=== PATIENT | male | born 1990 | race Caucasian/White ===

== ENCOUNTER 2020-10-13 12:14 | Emergency (ER) | payer BC, SELFPAY ==
--- NOTE | 2020-10-13 12:26 | XR_ITS ---
PROCEDURE: XR ELBOW RT MIN 3V CLINICAL INDICATION: injury Pain COMPARISON: No exams were available for comparison FINDINGS: No fracture or dislocation. No lytic or blastic change. There is normal mineralization. The joint spaces are well-preserved. No significant degenerative/arthritic changes. No erosive changes evident. Other findings:None. IMPRESSION: No acute findings. Dictated by: Mark James MD 10/13/2020 14:18 Mark James MD in [place] 10/13/2020 14:18
[2020-10-13 12:28] VITALS: BP 146/98; PULSE 64; RESP 14; TEMP 36.6; O2SAT 99; BMI 31.2
--- NOTE | 2020-10-13 12:46 | HMH.EDUTC ---
[facility] [place] Disposition Clinical Impression: Elbow sprain Qualifiers: Encounter type: initial encounter Laterality: right Qualified Code(s): S53.401A - Unspecified sprain of right elbow, initial encounter Disposition: Home, Self-Care Condition on Discharge: Good Instructions: How To Perform RICE (Rest, Ice, Compress, Elevate), DI for Elbow Pain Additional Instructions: *RICE, Rest the extremity, Ice 15-20 minutes 3-4 times daily, Compress- wear the anish wrap as discussed as much as possible to help reduce swelling and pain, Elevate the extremity when at rest *Anish wrap is for support and help control swelling, use it except in the shower. Be sure that is not to tight but not to loose either *Elevate when resting *Ibuprofen every 6-8 hours as needed for pain an inflammation. If need something more can take Tylenol in between doses of Ibuprofen to help Immediately follow up with your family doctor for new or worsening of symptoms, or no noticeable improvement over the next 3-5 days Referrals: PCP,No [Primary Care Provider] - As needed Felipe Perez MD [Staff Physician] - (Office will call with Appointment) Time of Disposition: 13:28 Medical Decision Making - Cortes Inquiry Pt receiving controlled substance: No Cortes was queried for this patient: No Vital Signs: 10/13/20 12:28 10/13/20 13:34 Temperature 98 F 98 F Temperature Source Oral Pulse Rate 63 Pulse Rate [Right] 64 Respiratory Rate 14 16 Blood Pressure 139/85 Blood Pressure [Right Arm] 146/98 H Blood Pressure Mean [Right Arm] 114 Blood Pressure Source [Right Arm] Automatic Cuff Blood Pressure Position [Right Arm] Sitting 02 Sat by Pulse Oximetry 99 - Radiology Data #1 Image(s): Elbow Image Reviewed: Yes I reviewed the patient's radiology image Preliminary Findings: No Fracture Seen - Physician Consults Physician Consulted: Chris Time: 13:31 Reason -: Orthopedic Eval/Care Comment/Response: Spoke with Dr Perez and he viewed xray agreed no acute fracture but will have him follow up in the office Advised office will call with appointment [facility] [place] HPI - General Stated complaint: Rt arm pain, unknown origin Time Seen by Provider: 10/13/20 12:46 Mode of Arrival: Ambulatory Source of Information: Patient Limitations: No Limitations Description of Symptoms (Recalled from Triage Doc. by RN): pt was weight training and injured his right elbow. pt states his elbow feels very weak and sore. theres only pain when he tries to pick something up and he says it feels like its tearing. HEENT Symptoms (Recalled from RN notes): No Resp Symptoms (Recalled from RN notes): No Skin Symptoms (Recalled from RN notes): No MS Symptoms (Recalled from RN notes): Yes (R elbow pain) Functional Status (Recalled from RN notes): na - History of Present Illness Provider Complaint: Patient states that about a month ago he was lifting weights and felt something pull in his elbow area States that ever since he has been having pain in his right elbow when he tries to lift something or hold his phone States that when he lifts something he feels a tearing like pain Denies any other injury - Related Data Allergies Allergy/AdvReac Type Severity Reaction Status Date / Time No Known Allergies Allergy Verified 10/13/20 12:32 - Worker's Comp Is this a Worker's Comp case?: No [facility] History - Hepatitis A Screen Drug use history?: No High risk sexual behaviors?: No History of sexually transmitted infection?: No Currently employed?: No Childcare worker?: No Do you have indoor plumbing?: Yes Do you have electricity?: Yes Attestation statement:: This patient has been screened for Hepatitis A risk factors. I have reviewed the patient's past medical history: Yes - Social History Smoking Status: Never smoker Alcohol Intake: never Occupational Status: employed ROS Obtained: Yes All systems reviewed & no additional complaints, Yes Systems reviewed as appropriate & no addition
[2020-10-13 13:34] VITALS: BP 139/85; PULSE 63; RESP 16; TEMP 36.6
== END 2020-10-13 13:34 | disposition home or self-care (01) ==
PROVIDERS: Emergency Provider Nurse Practitioner
DX: S53.401A Unspecified sprain of right elbow, initial encounter (principal); X50.0XXA Overexertion from strenuous movement or load, initial encounter
CPT/HCPCS: 73080; 99202; G0463

== ENCOUNTER 2024-08-17 09:35 | Emergency (ER) | payer BC, SELFPAY ==
[2024-08-17 10:08] VITALS: BP 172/119; PULSE 119; RESP 20; TEMP 37.7; O2SAT 93; BMI 34.0
[2024-08-17] MEDS: ACETAMINOPHEN 325MG TAB 650 MG PO (10:17)
[2024-08-17 10:18] LABS: UTC Influenza A Antigen Negative (Negative)
[2024-08-17 10:19] LABS: UTC Influenza B Antigen Negative (Negative)
--- NOTE | 2024-08-17 11:09 | EXP.UTC ---
Discharge Plan Disposition Patient Disposition: Home, Self-Care Condition: Good Prescriptions Prescriptions: New doxycycline hyclate 100 mg capsule 100 mg PO BID 10 Days Qty: 20 0RF benzonatate 100 mg capsule 100 mg PO TID PRN (Reason: cough) Qty: 30 0RF Referrals Follow up/Referrals: Provider,Referral, MD [Primary Care Provider] - See instructions Activity Restrictions/Add. Instructions Additional Instructions/Restrictions: Take medication as prescribed. Call back this evening at [phone] for lab results. Follow up with PCP if no better withing 48-72 hours. If you become short of air, return to the ER. Take Tylenol/Ibuprofen as needed for fever/pain. Avoid OTC cold medications unless states that for use for people with high blood pressure. Monitor blood pressure three times a week and document. Make an appointment with PCP and take BP log with you at that time. Clinical Impressions Clinical Impression: Acute lower respiratory infection High blood pressure Qualifiers: Hypertension type: unspecified Qualified Code(s): I10 - Essential (primary) hypertension Stand Alone Forms Stand Alone Forms: Work/School Release Instructions Patient Instructions: Acute Bronchitis, DI for High Blood Pressure, Recommendations to Help Prevent High Blood Pressure Print Language Print Language: Azeri Discharge ED Provider: Perla Mckeon [facility] [place] General Stated complaint: fever 102, chills Mode of Arrival: Ambulatory Source of Information: Patient Time Seen by Provider: 08/17/24 11:08 Description of Symptoms (Recalled from Triage Doc. by RN): FEVER OF 102 AT HOME, CHILLS, CONGESTION HEENT Symptoms (Recalled from RN notes): No Resp Symptoms (Recalled from RN notes): Yes Skin Symptoms (Recalled from RN notes): No MS Symptoms (Recalled from RN notes): No Functional Status (Recalled from RN notes): WNL History of Present Illness Provider Complaint: Pt reports that he has had a fever since with temps being as high as 102. He states that he has had a cough and is taking OTC cold medications. He states that he has had body aches and chils. Related Data Previous Rx's ?Medication ?Instructions ?Recorded benzonatate 100 mg capsule 100 mg PO TID PRN cough #30 caps 08/17/24 doxycycline hyclate 100 mg capsule 100 mg PO BID 10 days #20 caps 08/17/24 Allergies Allergy/AdvReac Type Severity Reaction Status Date / Time No Known Allergies Allergy Verified 10/27/20 09:18 Worker's Comp Is this a Worker's Comp case?: No [facility] Disclaimer: The information contained in this section may have been updated after the patient was seen, as this information can be updated by other users. Social History Smoking Status: Never smoker alcohol intake: never current occupational status: employed Travel in the last 8 weeks: None Have you lived/traveled outside [place] in past 30 days?: No Contact w/someone who lives/traveled outside US past 30 days?: No Exposure to someone with infectious disease in past 14 days?: No Do you have a fever (greater than 100.4 F or 38 C)?: Yes Have you tested positive for COVID-19: No Exposed to someone with COVID-19 in past 14 days?: No Do you have a sore throat?: No Do you have a cough?: No Do you have any weakness?: No Do you have any diarrhea?: No Are you experiencing any unusual bleeding?: No Do you have any muscle aches/pain?: No Do you have any abdominal pain?: No Are you experiencing loss of taste or smell?: No ROS Obtained: Yes All systems reviewed & no additional complaints except as documented Constitutional Constitutional: Reports system reviewed and no additional complaints, except as documented, Reports body ache, Reports chills and Reports fever(s) Eyes Eyes: Reports system reviewed and no additional complaints, except as documented ENT Ears, Nose, Mouth, and Throat: Reports system reviewed and no additional complaints, except as documented Cardiovascular Cardiovascular: Reports system reviewed and no additional complaints, except as documented Respiratory Respiratory: Reports system reviewed and no additional complaints, except as documented and Reports cough Gastrointestinal Gastrointestingal: Reports system reviewed and no additional complaints, except as documented Genitourinary Male Genitourinary: Reports system reviewed and no additional complaints, except as documented Musculoskeletal Musculoskeletal: Reports system reviewed and no additional complaints, except as documented Integumentary/Breasts Skin/Breast: Reports system reviewed and no additional complaints, except as documented Neurologic Neurologic: Reports system reviewed and no additional complaints, except as documented Endocrine Endocrine: Reports system reviewed and no additional complaints, except as documented Hematologic/Lymphatic Henatologic/Lymphatic: Reports system reviewed and no additional complaints, except as documented Allergic/Immunologic Allergic/Immunologic: Reports system reviewed and no additional complaints, except as documented Physical Exam General General appearance: alert Comment: ill appearing. Sweating profusely Head Head exam: atraumatic and normocephalic Eye Eye exam: Present normal appearance ENT ENT exam: Present normal exam, normal oropharynx and mucous membranes moist Neck Neck exam: Present normal inspection; Absent lymphadenopathy Chest Chest inspection: Present normal inspection and symmetric chest wall rise Respiratory Respiratory exam: Present other (course sounds throughout) Cardiovascular Cardiovascular exam: Present tachycardia Abdominal Exam Abdominal exam: Present soft and normal bowel sounds Extremities Exam Extremities exam: Present normal inspection Back Exam Back exam: Present normal inspection Neurological Exam Neurological exam: Present alert and oriented X3 Psychiatric Psychiatric exam: Present normal affect and normal mood Skin Skin exam: Present warm, dry and intact Lymphatic Lymphatic Findings: no adenopathy Medical Decision Making Medical Records Screening: Per USPSTF and CDC recommendations, given the prevalence of disease in our region, it is our hospital?s policy to screen for HIV and viral Hepatitis for all patients aged 18 and over and those with ongoing risk factors. Cortes Inquiry Pt receiving controlled substance: No Cortes was queried for this patient: No Vital Signs: 08/17/24 10:08 Temperature 99.8 F H Temperature Source Oral Pulse Rate [Left Radial] 119 H Respiratory Rate 20 Blood Pressure [Left Arm] 172/119 H Blood Pressure Mean [Left Arm] 136 02 Sat by Pulse Oximetry 93 L Lab Data Lab results reviewed: Yes I reviewed the patient's lab results. Lab Results 08/17/24 10:17: Influenza Type A Ag Negative, Influenza Type B Ag Negative Orders (Tests/Meds): ED MEDICATIONS Discontinued Medications Generic Name Dose Route Start Last Admin Trade Name Cj PRN Reason Stop Dose Admin Acetaminophen 650 mg 08/17/24 10:15 08/17/24 10:17 Acetaminophen 325mg Tab PO 08/17/24 10:16 650 mg ONCE ONE Administration
[2024-08-17 11:27] VITALS: BP 149/103; PULSE 111; O2SAT 95
[2024-08-17 11:30] VITALS: BP 149/103; PULSE 111; RESP 18; TEMP 37.7
[2024-08-17 11:39] LABS: Coronavirus 19, PCR Not Detected (NotDetected); Influenza A, PCR Not Detected (NotDetected); Influenza B, PCR Not Detected (NotDetected)
== END 2024-08-17 11:36 | disposition home or self-care (01) ==
PROVIDERS: Emergency Provider Nurse Practitioner Family
DX: J22 Unspecified acute lower respiratory infection (principal); I10 Essential (primary) hypertension
CPT/HCPCS: 87636; 87804; 99213; G0381

== ENCOUNTER 2024-12-27 02:28 | Emergency (ER) | payer BC, SELFPAY ==
[2024-12-27] VITALS (7 sets, daily range): BP systolic 113–158; BP diastolic 66–101; PULSE 71–107; RESP 14–18; TEMP 37.2–37.3; O2SAT 90–98; BMI 29.8
--- NOTE | 2024-12-27 02:34 | ECG_ITS ---
APPROVED REPORT Exam: Resting ECG HR:106 bpm ECG Measurements Heart Rate 106 AXES AK 139 P 29 QRSd 98 QRS 39 QT 358 T 20 QTc 420 Conclusion SINUS TACHYCARDIA ABNORMAL RHYTHM ECG Electronically signed by : RAQUEL LEMUS, 12/27/2024 03:51:26
--- NOTE | 2024-12-27 02:43 | XR_ITS ---
PROCEDURE INFORMATION: Exam: XR Chest Exam date and time: 12/27/2024 2:57 AM Age: 34 years old Clinical indication: Tachypnea; Additional info: Tachy, took delta 9 gummies TECHNIQUE: Imaging protocol: Radiologic exam of the chest. Views: 1 view. COMPARISON: No relevant prior studies available. FINDINGS: Lungs: Unremarkable. No consolidation. Pleural spaces: Unremarkable. No pleural effusion. No pneumothorax. Heart/Mediastinum: Unremarkable. No cardiomegaly. Bones/joints: Unremarkable. IMPRESSION: No acute findings.
[2024-12-27] MEDS: LACTATED RINGERS 1000ML 1,000 ML 999 ML IV ×2 (02:47→03:53)
[2024-12-27] MEDS: ONDANSETRON 4MG/2ML VIAL 4 MG IV (02:47)
--- OUTSIDE RECORDS SUMMARY | 2024-12-27 02:57 | XMS_ITS | Clinical Summary ---
Author Organization [facility] Address [address] [place] [id number] Phone [email or web address] Care Team Providers Care Survey Crew Chief Name Role Phone Provider, No Primary Care Provider Unavailabl e Allergies No known active allergies Medications Naproxen Sodium (Aleve) 220 MG capsule Take by mouth. Active Active Problems Problem Noted Date Diagnosed Date Mild sprain of right ankle 04/15/2019 Routine adult health maintenance 11/14/2016 Essential hypertension 10/17/2016 Gastroesophageal reflux disease without esophagi tis 10/17/2016 Need for Tdap vaccination 10/17/2016 Obesity (BMI 30-39.9) 10/17/2016 Overview (04/15/2019): Last Assessment & Plan: Obesity is newly identified. Discussed the patient's BMI. The BMI is above average; BMI management plan is completed. General weight loss/lifestyle modification strategies discussed (elicit support from others; identify saboteurs; non-food rewards, etc). Oropharyngeal dysphagia 10/17/2016 Immunizations Immunization Administration Dates Next Due Tdap (ADACEL BOOSTRIX) (CVX-[id number]) 10/17/2016 Social History Tobacco Use Types Packs/Day Years Used Date Smoking Tobacco: Never Smokeless Tobacco: Never Tobacco Cessation:Counseling Given: Not Answered Intimate Partner Violence Answer Date R ecorded Insults You Not on file 11/02/2020 Threatens You Not on file 11/02/2020 Screams at You Not on file 11/02/2020 Physically Hurt Not on file 11/02/2020 Intimate Partner Violence Score Not on file 11/02/2020 Depression Answer Date Recorded PHQ Total Score 0 09/20/2023 Stress Answer Date Recorded Stress in your Life Not on file 05/26/2024 Dealing with Stress 3 05/26/2024 Sex and Gender Information Value Date Recorded Sex Assigned at Not on file Legal Sex Male 8:29 AM CDT Gender Identity Not on file Sexual Orientation Not on file Last Filed Vital Signs Vital Sign Reading Time Taken Comments Blood Pressure 118/80 11/19/2024 2:43 PM EDT Pulse 82 11/19/2024 2:43 PM EDT Temperature 36.7 C (98.1 F) 11/19/2024 2:43 PM EDT Respiratory Rate 14 11/19/2024 2:43 PM EDT Oxygen Saturation 96% 10/03/2023 12:26 PM EDT Inhaled Oxygen Concentration - - Weight 113 kg (250 lb 3.2 oz) 11/19/2024 2:43 PM EDT Height 182.9 cm (6') 11/19/2024 2:43 PM EDT Body Mass Index 33.93 11/19/2024 2:43 PM EDT Plan of Treatment Health Maintenance Due Date Last Done Comments Dental Cleaning/Exam 1992 HIV Screening 1992 Hepatitis C Screening 1992 Annual Preventive Exam 2010 Hep B Infection Screening - Triple Screen 2010 Hepatitis B Immunization (1 of 3 - 19+ 3-dose series) 12/10/2011 Covid-19 Immunization (1 - 2 024-25 season) 2024 Influenza Immunization (Seas on Ended) 2025 Tetanus Diphtheria and Pertu ssis Immunization (2 - Td or Tdap) 10/17/2026 10/17/2016 HIB Immunization Aged Out No longer e ligible based on patient's age to complete this topic HPV Immunization Aged Out No longer e ligible based on patient's age to complete this topic Hepatitis A Immunization Aged Out No longer eligible based on patient's age to complete this topic Pneumococcal: Ped (0 to 5 Yr s) and At-Risk Member (6 to 64 Yrs) Aged Out No longer e ligible based on patient's age to complete this topic Polio Immunization Aged Out No longer eligible based on patient's age to complete this topic Varicella Immunization Aged Out No lo nger eligible based on patient's age to complete this topic Care Teams Survey Crew Chief Relationship Specialty Start Date End Date Provider, BLANCA Solis [id number] PCP - General Director Education 04/11/21
[2024-12-27 03:09] LABS: Alanine Aminotransferase 34 U/L (12-78); Albumin Level 4.5 g/dl (3.5-5.0); Albumin/Globulin Ratio 1.5 (1.1-1.8); Alkaline Phosphatase 75 U/L (38-126); Anion Gap 10.8 mEq/L (5-15); Aspartate Amino Transferase 36 U/L (17-59); Bilirubin,Total 0.8 mg/dl (0.2-1.3); Blood Urea Nitrogen 32 mg/dl (9-20); Calcium 8.5 mg/dl (8.4-10.2); Carbon Dioxide 25 mmol/L (22.0-30.0); Chloride 105 mmol/L (98-107); Creatinine Clearance Estimated 150 mL/min (50-200); Estimated Glomerular Filt Rate 87 ml/min (>60); GFR (African American) 105 ML/MIN (>60); Globulin 3.1 g/dL (1.3-3.2); Glucose 140 mg/dl (74-100); Potassium 3.8 mmoL/L (3.5-5.1); Sodium 137 mmol/L (136-145); Total Protein,Serum 7.6 g/dl (6.3-8.2)
[2024-12-27 03:13] LABS: D-Dimer 0.52 ug/mL (0.0-0.5)
[2024-12-27 03:14] LABS: Basophils # 0.1 K/mm3 (0-0.2); Basophils % 1.3 % (0.1-2.0); Eosinophils # 0.4 Kmm3 (0.0-0.4); Eosinophils % 5.3 % (0.1-12.0); Hematocrit 43.7 % (42.0-52.0); Hemoglobin 14.7 g/dL (14.1-18.0); Immature Granulocytes # 0.04 10^3uL; Immature Granulocytes % 0.6 %; Lymphocytes # 2.8 K/mm3 (0.7-4.5); Lymphocytes % 40.1 % (10-50); Mean Corpuscular HGB Conc 33.6 g/dL (31.8-35.4); Mean Corpuscular Hemoglobin 29.9 pg (27.0-31.2); Mean Platelet Volume 10.8 fl (7.4-10.4); Monocytes # 0.8 K/mm3 (0.1-1.0); Monocytes % 10.7 % (1.7-9.3); Neutrophils # 2.9 K/mm3 (1.8-7.8); Nucleated Red Blood Cells # 0 10^3/uL; Nucleated Red Blood Cells % 0 %; Platelet Count 235 K/mm3 (142-424); Red Blood Count 4.91 M/mm3 (4.60-6.20); Red Cell Distribution Width 12.3 % (11.5-17.5); Red Cell Distribution Width-SD 40.2 fL
--- NOTE | 2024-12-27 03:24 | ED_ITS ---
Discharge Plan Disposition Patient Disposition: Home, Self-Care Condition: Good Prescriptions Prescriptions: No Action doxycycline hyclate 100 mg capsule 100 mg PO BID 10 Days Qty: 20 0RF benzonatate 100 mg capsule 100 mg PO TID PRN (Reason: cough) Qty: 30 0RF Referrals Follow up/Referrals: Provider,Referral, [Primary Care Provider, Medical] - See instructions Activity Restrictions/Add. Instructions Additional Instructions/Restrictions: You were evaluated in the ER and are appropriate for discharge at this time. Avoid delta 9 and other illicit drugs in the future to avoid side effects like those that brought you to the ER tonight. Make an appointment with your primary care doctor for reevaluation. Return to the ER with any new, worsening, or otherwise concerning symptoms. Clinical Impressions Clinical Impression: Substance use Print Language Print Language: Maltese Discharge ED Provider: Sedrick Kohler Adult HPI General Chief complaint: Overdose Stated complaint: overdose Time Seen by Provider: 12/27/24 02:32 Mode of Arrival: EMS Source of Information: Patient and EMS Description of Symptoms (Recalled from ER Triage Doc. by RN): pt presents as potential OD on Delta 9 gummies bought from gas station. EMS reports patient and his took 1/2 of a gummy which comes out to be 1,000mg a piece. Pt denies any recreational drug use in the past, reports occasional alcohol use at times. Pt denies [place] History of Present Illness HPI narrative: 34 year old male who reports no current medical conditions, no daily medications, no known drug allergies presents to the ER for complaints of [place] after taking delta 9 Gummies purchased from a gas station. Patient ingested 1000 mg of delta 9 gummy which includes delta 9, THCA, THCB, and THCP. Patient denies any history of recreational drug use, occasional alcohol use is reported but none tonight. Patient denies taking any other medications or drugs tonight. Denies suicidal or homicidal ideation. Patient complains of extremely dry mouth and states his chest feels funny but otherwise does not have other complaints or concerns. He reports maybe having slight mild nausea. He is fully oriented. EMS reports no medications administered during transportation. Related Data Previous Rx's ?Medication ?Instructions ?Recorded benzonatate 100 mg capsule 100 mg PO TID PRN cough #30 caps 08/17/24 doxycycline hyclate 100 mg capsule 100 mg PO BID 10 da ys #20 caps 08/17/24 Allergies Allergy/AdvReac Type Severity Reaction Status Date / Time No Known Allergies Allergy Verified 10/27/20 09:18 [facility] Disclaimer: The information contained in this section may have been updated after the patient was seen, as this information can be updated by other users. Social History Smoking Status: Never smoker alcohol intake: never current occupational status: employed Travel in the last 8 weeks?: None Other Medical History Have you received the Pneumonia Vaccine: No ROS Obtained: Yes Systems reviewed as appropriate & no additional complaints except as documented Per HPI Physical Exam General General appearance: alert, in no apparent distress and appears intoxicated Head Head exam: atraumatic and normocephalic Eye Eye exam: Present PERRL (3mm) and EOMI ENT ENT exam: Present mucous membranes moist Neck Neck exam: Present normal inspection and full ROM Chest Chest inspection: Present symmetric chest wall rise Respiratory Respiratory exam: Present normal lung sounds bilaterally; Absent respiratory distress, wheezes or stridor Cardiovascular Cardiovascular exam: Present normal rhythm and tachycardia (Mild, low 100s) Abdominal Exam Abdominal exam: Present soft; Absent distention or tenderness Extremities Exam Extremities exam: Present full ROM; Absent tenderness or edema Neurological Exam Neurological exam: Present alert, oriented X3 and CN II-XII intact; Absent motor sensory deficit Psychiatric Psychiatric exam: Present normal affect and normal mood Skin Skin exam: Present warm and dry Medical Decision Making Medical Records Medical records reviewed: Yes I reviewed the patient's medical records. Screening: Per USPSTF and CDC recommendations, given the prevalence of disease in our region, it is our hospital?s policy to screen for HIV and viral Hepatitis for all patients aged 18 and over and those with ongoing risk factors. [place] Inquiry Pt receiving controlled substance: No Vital Signs: 12/27/24 02:31 12/27/24 03:00 12/27/24 03:30 Temperature 99.2 F Temperature Source Oral Pulse Rate 99 H 85 Pulse Rate [Radial] 107 H Respiratory Rate 14 15 15 Blood Pressure 140/95 H 121/66 Blood Pressure [Right Arm] 158/101 H Blood Pressure Mean Blood Pressure Mean [Right Arm] 120 Blood Pressure Position [Right Arm] Sitting 02 Sat by Pulse Oximetry 96 95 90 L Oxygen Delivery Method Room Air 12/27/24 04:00 12/27/24 04:30 12/27/24 05:30 Temperature Temperature Source Pulse Rate 76 94 H 84 Pulse Rate [Radial] Respiratory Rate 14 16 18 Blood Pressure 128/82 140/98 H 121/74 Blood Pressure [Right Arm] Blood Pressure Mean 85 Blood Pressure Mean [Right Arm] Blood Pressure Position [Right Arm] 02 Sat by Pulse Oximetry 96 95 95 Oxygen Delivery Method Lab Data Lab Results 12/27/24 02:43: WBC 7.0, RBC 4.91, Hgb 14.7, Hct 43.7, MCV 89.0, MCH 29.9, MCHC 33.6, RDW 12.3, Plt Count 235, MPV 10.8 H, Neut % (Auto) 42.0, Lymph % (Auto) 40.1, [place] % (Auto) 10.7 H, Eos % (Auto) 5.3, Baso % (Auto) 1.3, Neut # (Auto) 2.9, Lymph # (Auto) 2.8, [place] # (Auto) 0.8, Eos # (Auto) 0.4, Baso # (Auto) 0.1, D-Dimer 0.52 H, Sodium 137, Potassium 3.8, Chloride 105, Carbon Dioxide 25, Anion Gap 10.8, BUN 32 H, Creatinine 1.00, Estimated Creat Clear 150, Estimated GFR 87, Est GFR ( Amer) 105, Glucose 140 H, Calcium 8.5, Total Bilirubin 0.8, AST 36, ALT 34, Alkaline Phosphatase 75, Troponin I < 0.01, Total Protein 7.6, Albumin 4.5, Globulin 3.1, Albumin/Globulin Ratio 1.5 12/27/24 02:43 12/27/24 02:43 Orders (Tests/Meds): ED MEDICATIONS Discontinued Medications Generic Name Dose Route Start Last Admin Trade Name Freq PRN Reason Stop Dose Admin Lactated Ringer's 1,000 mls @ 999 mls/hr 12/27/24 02:32 12/27/24 02:47 Lactated Ringer's 1000 Ml Bag IV 12/27/24 03:32 999 mls/hr .Q1H1M ONE Administration Lactated Ringer's 1,000 mls @ 999 mls/hr 12/27/24 03:41 12/27/24 03:53 Lactated Ringer's 1000 Ml Bag IV 12/27/24 04:41 999 mls/hr .Q1H1M ONE Administration Ondansetron HCl 4 mg 12/27/24 02:34 12/27/24 02:47 Ondansetron 4mg/2ml Vial IV 12/27/24 02:35 4 mg ONCE ONE Administration ORDERS Category Date Time Status CXR --portable [XR chest portable] Stat Exams 12/27/24 02:43 Completed CBC w/Auto Diff [Complete Blood Count Auto Diff] Stat Lab 12/27/24 02:43 Completed CMP [Comprehensive Metabolic Panel] Stat Lab 12/27/24 02:43 Completed D-Dimer Stat Lab 12/27/24 02:43 Completed Trop I [Troponin I] Stat Lab 12/27/24 02:43 Completed Medical Decision Narrative: In summary, this 34-year-old male presents to the emergency department today with dry mouth and funny feeling in the chest after delta 9 ingestion. On initial evaluation patient is tachycardic but otherwise hemodynamically stable, afebrile, GCS 15 though patient appears intoxicated, no neurologic deficits, patient denies chest pain and cardiopulmonary exam is benign aside from tachycardia, no peripheral edema, no evidence of traumatic injury, abdominal exam benign. Differential diagnosis includes but is not limited to delta 9 ingestion and side effects, I considered the possibility of coingestion however patient adamantly denies taking anything else and they provide the package for the Gummies upon arrival. With patient's tachycardia I considered the possibility of cardiac abnormality such as ACS or PE though I have very low suspicions for these and suspect tachycardia is related to intoxication. Based on these concerns, I ordered basic serum labs, cardiac workup, D-dimer. ECG personally interpreted demonstrates sinus tachycardia, rate 106, normal axis, normal OR and QTc, no STEMI. Patient received IV fluids and Zofran for treatment. Labs personally reviewed demonstrate no leukocytosis or anemia, normal platelets, CMP with mild prerenal azotemia, patient is already receiving IV fluids. Initial troponin undetectably low less than 0.01 significantly reassuring against acute cardiac abnormality especially in the setting of normal ECG and absence of chest pain. D-dimer 0.52, by years criteria PE excluded and CTA PE not indicated. XR personally interpreted demonstrates no lobar infiltrate or other acute intrathoracic abnormality, see radiology read for final interpretation. Patient was placed in the ED observation at 0340 for continued cardiac monitoring and metabolization of intoxication. Goal is to preclude unnecessary admission and ensure patient returns to baseline. Patient remains on the air sampling and monitoring and has been frequently assessed while in ED observation. At this time I believe patient is appropriate for discharge. On frequent reassessments he has had progressive improvement of symptoms and of heart rate, he has tolerated oral intake and has ambulated independently. He is a GCS 15 and clinically sober. Appropriate for discharge at this time. Patient was given instructions on symptomatic management, follow up instructions, and return precautions for the emergency department. Patient indicated understanding and was discharged in stable condition. Total time in ED observation: 2 hours 55 minutes Critical Care Critical Care Time Critical Care Time: No
[2024-12-27 03:37] LABS: Troponin I < 0.01 ng/ml (0.00-0.034)
--- NOTE | 2024-12-27 06:04 | PC.NURSE ---
2nd trop drawn and sent to the lab at this time, pt requesting to ambulate to restroom.
== END 2024-12-27 06:45 | disposition home or self-care (01) ==
PROVIDERS: Emergency Provider Emergency Medicine
DX: F19.929 Other psychoactive substance use, unspecified with intoxication, unspecified (principal); R00.0 Tachycardia, unspecified
CPT/HCPCS: 71045; 80053; 84484; 85025; 85378; 93005; 96361; 96374; 99285; J2405; J7120